=== PATIENT | female | born 1995 | race Caucasian/White ===

== ENCOUNTER 2017-02-13 14:24 | Emergency (ER) | payer BC ==
[2017-02-13 14:36] VITALS: BP 130/94; PULSE 76; RESP 16; TEMP 98.4; O2SAT 96
--- NOTE | 2017-02-13 15:14 | EDPHY ---
H & P Smoking Status: Never smoked Time Seen by Provider: 02/13/17 14:45 HPI/ROS: CHIEF COMPLAINT: Right ankle injury HISTORY OF PRESENT ILLNESS: 21-year-old female presents to the emergency department with injury to the right ankle. The patient was walking last night and stepped off a curb and somehow twisted her right ankle and then fell. She complains of isolated pain to the right ankle. Denies hitting her head or losing consciousness. She was initially able to ambulate and now this morning she is unable to put weight on her right ankle secondary to pain. ROS: Denies numbness or tingling in her toes, pain in her right calf or right knee. (Eulalia Davis) Past Medical/Surgical History: Negative (Eulalia Davis) Social History: [employer] student (Eulalia Davis) Physical Exam: On examination there is no obvious swelling noted to her right ankle. She has pain with palpation especially to the medial aspect of the ankle overlying medial malleolus. Nontender to palpate to the lateral aspect of her right ankle. Nontender over the ankle mortise. Nontender to palpate the right foot. Limited dorsiflexion secondary to pain. Full plantar flexion. No obvious ligament instability. No abrasions or puncture wounds noted. Strong dorsalis pedis pulse on the dorsal aspect of her right foot. Her gait is not tested due to pain. (Eulalia Davis) Constitutional: Initial Vital Signs Temperature (C) 36.9 C 02/13/17 14:30 Heart Rate 76 02/13/17 14:30 Respiratory Rate 16 02/13/17 14:30 Blood Pressure 130/94 H 02/13/17 14:30 O2 Sat (%) 96 02/13/17 14:30 O2 Delivery Mode Room Air Allergies/Adverse Reactions: No Known Allergies Allergy (Unverified 02/13/17 14:32) Home Medications: Medication Instructions Recorded NK [No Known Home Meds] 02/13/17 MDM/Departure - MDM Imaging: I viewed and interpreted images myself - MDM Procedures: Patient was placed in Velcro ankle stirrup splint and examined post application in good placement with normal RESIDENTIAL TREATMENT STAFF. (Eulalia Davis) ED Course/Re-evaluation: 21-year-old female presents to the emergency department with right ankle injury. X-rays reveal no fractures. She was placed in Velcro ankle stirrup splint and given orthopedic referral. (Eulalia Davis) I did not see this patient while she was in the emergency department. However her care was discussed with the PA while the patient was in the department. I agree with treatment plan and management (Heriberto Fields) - Depart Disposition: Home, Routine, Self-Care Clinical Impression: Right ankle sprain, Pruritic rash Condition: Good Instructions: Ankle Sprain (ED), Acute Rash (ED) Additional Instructions: Ibuprofen 600 mg every 8 hours as needed for pain. Weightbear as tolerated. Velcro ankle stirrup splint for comfort and support. Follow up with orthopedic physician in 1 week to recheck. Rash: Pepcid 20mg twice daily for itching. Benadryl 50mg every 6 hours for itching, caution drowsiness. You may continue topical hydrocortisone or topical Benadryl for itching. Try not to itch the rash as this may cause spreading or make this itch more. Referrals: Wei Franklin MD [Medical Doctor] - 2-3 days, call for appt. (Orthopedic surgeon on-call)
== END 2017-02-13 15:48 | disposition home or self-care (01) ==
DX: S93.401A Sprain of unspecified ligament of right ankle, initial encounter (principal); R21 Rash and other nonspecific skin eruption; W19.XXXA Unspecified fall, initial encounter; Y99.8 Other external cause status; Y93.01 Activity, walking, marching and hiking
CPT/HCPCS: L4350

== ENCOUNTER 2018-02-11 08:25 | Emergency (ER) | payer BC ==
[2018-02-11 08:32] VITALS: BP 124/87
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
== END 2018-02-11 09:17 | disposition home or self-care (01) ==
DX: S93.402A Sprain of unspecified ligament of left ankle, initial encounter (principal); X50.1XXA Overexertion from prolonged static or awkward postures, initial encounter; Y92.480 Sidewalk as the place of occurrence of the external cause
CPT/HCPCS: L4350

== ENCOUNTER 2018-07-06 17:52 | Emergency (ER) | payer OTHER, BC ==
[2018-07-06 18:07] VITALS: BP 125/80
== END 2018-07-06 20:30 | disposition left against medical advice (07) ==
DX: Z53.21 Procedure and treatment not carried out due to patient leaving prior to being seen by health care provider (principal)

== ENCOUNTER 2018-07-07 12:02 | Emergency (ER) | payer OTHER, BC ==
[2018-07-07 12:18] VITALS: BP 127/89
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
== END 2018-07-07 13:19 | disposition home or self-care (01) ==
DX: S16.1XXA Strain of muscle, fascia and tendon at neck level, initial encounter (principal); V49.49XA Driver injured in collision with other motor vehicles in traffic accident, initial encounter; Y92.410 Unspecified street and highway as the place of occurrence of the external cause; Y99.9 Unspecified external cause status; Y93.9 Activity, unspecified